=== PATIENT | male | born 1960 | race Hispanic/Latino ===

== ENCOUNTER → 2023-05-24 | Outpatient (CLI) | payer MEDICARE | END | disposition home or self-care (01) | LOC: RAH 12:49 | PROVIDERS: ATTEND Student in an Organized Health Care Education/Training Program | DX: I34.1 Nonrheumatic mitral (valve) prolapse (principal); I35.8 Other nonrheumatic aortic valve disorders; I10 Essential (primary) hypertension | CPT/HCPCS: 93306 ==